=== PATIENT | female | born 2000 | race Caucasian/White ===

== ENCOUNTER 2023-08-02 07:22 | Outpatient (CLI) | payer BC, SELFPAY ==
--- NOTE | 2023-08-02 07:15 | CRLHL7_ITS ---
For Patients: As a result of the Century Cures Act, medical imaging exams and procedure reports are released immediately into your electronic medical record. You may view this report before your referring provider. If you have questions, please contact your health care provider. INDICATION: Evaluate anatomy. COMPARISON: 04/28/2023 TECHNIQUE: Real time sharp scale imaging of the fetus was performed as well as color Doppler analysis of the umbilical vessels. FINDINGS: Sonographic imaging demonstrates a single living intrauterine gestation. Fetus demonstrates a regular cardiac rate of 138 beats per minute. Fetus has a vertex position. The placenta lies anteriorly without evidence of placenta previa. The placental edge is 8.5 cm from the internal cervical os. Amniotic fluid volume appears normal. Single deepest vertical pocket: 4.3 cm. The cervix is closed and measures 3.3 cm in length. The composite ultrasound gestational age is calculated at 21 weeks 0 days with an estimated sonographic due date of 12/13/2023. The estimated weight is 424 grams which lies at the 69th %. The following biometric measurements were obtained: Biparietal diameter: 4.8 cm/20 weeks 3 days 25th% Head circumference: 18.5 cm/20 weeks 6 days 32nd% Abdominal circumference: 17.0 cm/22 weeks 0 days 74th% Femur length: 3.5 cm/21 weeks 1 day 44th% The HC/AC ratio measures: 1.09 range (1.06-1.25) On anatomic survey, there is a normal appearance of the cerebral ventricles, cavum septi pellucidi, cisterna magna and cerebellum. The nose, lips, and facial profile appear normal. The cervical, thoracic and lumbar spine are well visualized and appear normal. There is a normal four-chamber heart view and the left and right ventricular outflow tracts appear normal. The diaphragm and stomach appear normal. The kidneys and bladder also appear normal. There is a normal three-vessel cord and there is an eccentric cord insertion site. The four extremities appear normal. IMPRESSION: Normal OB ultrasound exam with concordance of clinical and sonographic dating. No intrinsic abnormalities noted on anatomic survey. Dictated by Sergio Ellis MD @ 08/02/2023 8:55:35 AM (Electronically Signed)
== END 2023-08-02 07:23 | disposition home or self-care (01) ==
LOC: US 07:24
PROVIDERS: Visit Provider Registered Nurse
DX: Z34.92 Encounter for supervision of normal pregnancy, unspecified, second trimester; Z3A.21 21 weeks gestation of pregnancy
CPT/HCPCS: 76805

== ENCOUNTER 2023-08-03 08:50 | Outpatient (CLI) | payer BC, SELFPAY | END 2023-08-03 08:51 | disposition home or self-care (01) | PROVIDERS: Visit Provider Physician Assistant | DX: Z34.92 Encounter for supervision of normal pregnancy, unspecified, second trimester (principal); Z3A.21 21 weeks gestation of pregnancy | CPT/HCPCS: 86592; 86703; 86787; 87491; 87591 ==